=== PATIENT | male | born 1970 | race Two or more races ===

== ENCOUNTER 2019-04-04 11:01 | Outpatient (CLI) | payer OTHER ==
[~2019-04-04 11:01] MED LIST: ALLEGRA ALLERG180 MG PO; KEPPRA1000 MG PO; MICARDIS40 MG PO; PROAIR HFA8.5 GM IH; PROTONIX40 MG PO; TOPAMAX200 MG PO; VENTOLIN HFA18 GM IH
== END 2019-04-04 11:12 | disposition home or self-care (01) ==
LOC: LAB 11:01
DX: D64.89 Other specified anemias (principal)

== ENCOUNTER 2019-04-05 06:45 | Day surgery (SDC) | payer OTHER | END 2019-04-05 15:05 | disposition home or self-care (01) | LOC: CIR.AMB 06:45 → EDBD 14:30 → CIR.AMB 14:30 | DX: K62.89 Other specified diseases of anus and rectum (principal); K64.2 Third degree hemorrhoids; Z86.010 Personal history of colon polyps ==